=== PATIENT | male | born 1950 | race Caucasian/White ===

== ENCOUNTER 2017-03-16 14:59 | Inpatient (IN) | payer MEDICARE, OTHER ==
[~2017-03-16] VITALS: Ht 152.4 cm; Wt 85.3 kg
--- NOTE | ~2017-03-16 | O ---
[place], [place] OPERATIVE NOTE NAME: ALIYAH WOODS [facility] #: [id number] UNIT #: [id number] ROOM: [facility] DOCTOR: GURVINDER ERICKSON MD BIRTHDATE: [birth year] DOS: 03/17/2017 PREOPERATIVE DIAGNOSIS: Acute appendicitis. POSTOPERATIVE DIAGNOSIS: Acute perforated appendicitis. PROCEDURE: Laparoscopic appendectomy. SURGEON: Gurvinder Erickson MD TOUR BUS DRIVER: THELMA. ANESTHESIA: General with endotracheal intubation. INDICATIONS: This is a 67-year-old gentleman who comes in with abdominal pain and a CAT scan that showed acute appendicitis. It was decided to take the patient to the operating room for the above-mentioned procedure. The procedure and its complications explained to the patient in detail preoperatively. Complications that were discussed included but were not limited to bleeding, infection, prolonged postoperative pain, damage to underlying vital structures, inadvertent injury to underlying vital structures, incisional hernia formation and he agreed to proceed. DESCRIPTION OF PROCEDURE: After identifying the patient, the patient was brought to the operating suite and laid in the supine position. After induction of general anesthesia, timeout procedure was called. An NG-tube was inserted by the anesthesia team and a Mcnair catheter was inserted into the urinary bladder. The parts were then painted and draped in the usual sterile fashion. An incision below the umbilicus in a curvilinear fashion was made. The skin and the subcutaneous tissue were incised. The fascia was incised vertically and 2 stay sutures with 0 Vicryl were taken on either side. The peritoneum was opened and 12 mm Shane port was introduced into the peritoneal cavity and a pneumoperitoneum was created. Under direct vision, a left lower quadrant incision of 12 mm and suprapubic incision of 5 mm was made and appropriate size ports were introduced. There was found to be local inflammation from the acute appendicitis. Upon further dissection, it was found that there was a perforation of the appendix near the base. The appendix was held up with the help of an Endo Negra forceps and below the area of the perforation, the appendix was stapled off and removed from the peritoneal cavity after putting it in a bag. Copious amounts of saline was used for irrigation and after hemostasis was achieved and the area was clean and dry, a 15-Czech round Denis-Silva drain was placed via the suprapubic drain and placed in the region of the appendix. The drain was fixed after the port was removed to the overlying skin with the help of nylon sutures. The left lower quadrant port was also removed and the umbilical port was removed as well and the pneumoperitoneum was decompressed. The fascial defect was then approximated with the help of a single [id number]-ma-[id number] 0 Vicryl stitch and the edges of the skin were approximated after the were injected with 1% plain lidocaine with the help of 4-0 Vicryl in a subcuticular running fashion. Dressings were placed. The patient tolerated the procedure well and was extubated uneventfully and brought [place], [place] OPERATIVE NOTE NAME: ALIYAH WOODS UNIT #: [id number] ROOM: [facility] DOCTOR: GURVINDER ERICKSON MD BIRTHDATE: [birth year] back to the recovery room in stable fashion. A Mcnair catheter and the NG-tube was kept in place. There were no complications. Dr. Gurvinder Erickson, the attending surgeon, was present throughout the operating case. Gurvinder Erickson MD CM:OPRECORD:OPERATIVE NOTE [id number] GURVINDER ERICKSON MD 03/19/17 0800 interface
--- NOTE | ~2017-03-16 | DS ---
[place], [place] DISCHARGE SUMMARY NAME: ALIYAH WOODS [facility] #: [id number] UNIT #: [id number] ROOM: 515 DOCTOR: LYNETTE WINTER MD BIRTHDATE: [birth year] DOS: 03/20/2017 The patient has been admitted to the hospital with acute appendicitis, so he had appendectomy done yesterday and from which he has been recovering very satisfactorily. He also had some history of acute renal failure and tubular necrosis, hyperglycemia, elevated C-reactive protein, elevated blood protein, elevated lipase, tobacco abuse, hypokalemia, hypophosphatemia, hyperchloremia, hypermagnesemia and low serum vitamin D level. He has tolerated the procedure well and has recovered very well and according to his surgeon, the patient can be discharged today. He is able to eat well and without any problems. He had bowel movement, no nausea, no vomiting. His basic metabolic profile shows chloride 109 and calcium . Other values are normal. His CBC today showed white count 12,500, hemoglobin 11.8, hematocrit 35.6. PHYSICAL EXAMINATION: VITAL SIGNS: Stable. Blood pressure 133/65, pulse 65, respirations 18, temperature 97.9. CHEST: Clear. HEART: . ABDOMEN: Soft. No tenderness. DISCHARGE INSTRUCTIONS: The patient advised not to eat any fatty and fried food. He will be followed up by Dr. Hernandes in the office next week and also follow up with his surgeon. LYNETTE WINTER MD CM:AYO [id number] LYNETTE WINTER MD 03/22/17 1100 interface
[~2017-03-16 14:59] MED LIST: DAYPRO600 M1 PO; IBU800 MG PO; NEURONTIN600 MG PO; PRAVACHOL80 M1 GT; ROBAXIN750 MG PO; Synthroid,Levo25 MCG PO
[2017-03-16 15:10] VITALS: BP 138/84
[2017-03-16 15:40] LABS: BASO % 0.1 % (0.0-1.0); EOS % 0.1 % (1.0-4.0); HEMOGLOBIN 15.1 g/dl (14.0-18.0); LYMPH # 0.9 10*3/uL (1.3-4.4); LYMPH % 5.4 % (27.0-41.0); MEAN CELL VOLUME 92.8 fl (80.0-94.0); MEAN CORPUSCULAR HGB 31.1 pg (27.0-31.0); MEAN CORPUSCULAR HGB CONC 33.6 g/dl (33.0-37.0); MEAN PLATELET VOLUME 9.3 fl (9.6-12.3); MONO # 0.7 10*3/uL (0.1-1.0); MONO % 4.4 % (3.0-9.0); NEUT # 14.7 10*3/uL (2.3-7.9); NEUT % 89.7 % (47.0-73.0); PLATELET COUNT AUTOMATED 255 10*3/uL (130-400); RED BLOOD COUNT 4.85 10*6/uL (4.50-5.90); RED CELL DISTRI WIDTH 12.6 % (0-14.5); WHITE BLOOD COUNT 16.4 10*3/uL (4.8-10.8)
[2017-03-16 15:54] LABS: ALBUMIN 3.6 gm/dl (3.1-4.5); ALKALINE PHOSPHATASE 83 U/L (45-117); BUN 31 mg/dl (7-24); CHLORIDE 99 mmol/L (98-107); CREATININE 1.43 mg/dL (0.70-1.30); LIPASE 1482 U/L (73-393); POTASSIUM 4.1 mmol/L (3.5-5.1); SGOT/AST 31 IU/L (3-35); SGPT/ALT 51 U/L (12-78); SODIUM 134 mmol/L (136-145); TOTAL PROTEIN 8.7 gm/dL (6.4-8.2)
[2017-03-16 17:23] VITALS: BP 136/78
[2017-03-16 18:00] VITALS: BP 155/90
--- NOTE | 2017-03-16 18:00 | NUR ---
A 67, admitted to , under the services of AALIYAH Gautam MD with a diagnosis of . Chief complaint is abdominal pain. Patient arrived via stretcher from ER. Monitor applied. Initial assessment completed. Vital signs taken and recorded. AALIYAH GAUTAM MD notified; resident here to place orders. See assessment for past medical history, medications and allergies. Patient and/or family oriented to unit. [facility] visitation policy reviewed. Clothing/patient valuable form completed. MARTIN ARAGON
[2017-03-16 18:10] LABS: BILIRUBIN 1+ (NEGATIVE); BLOOD 2+ (NEGATIVE); CLARITY SL CLOUDY (CLEAR); COLOR YELLOW (YELLOW); GLUCOSE NEGATIVE (NEGATIVE); KETONE NEGATIVE (NEGATIVE); LEUKO ESTERASE NEGATIVE (NEGATIVE); NITRITE NEGATIVE (NEGATIVE); SPECIFIC GRAVITY >= 1.030 (1.005-1.030); UROBILINOGEN 0.2 E.U./dl (0.2-1.0)
[2017-03-16 20:00] VITALS: BP 148/78
[2017-03-17] VITALS (11 sets, daily range): BP systolic 122–186; BP diastolic 42–106
--- NOTE | 2017-03-17 05:59 | NUR ---
IV ZOFRAN ADMINISTERED AT THIS TIME PER PRN ORDER FOR 3 EPISODES OF VOMITING. WILL MONITOR EFFECTIVENESS OF MEDICATION. PATIENT SET UP FOR BATH. NEW BED LINENS, GOWN, AND TOWELS PROVIDED.
[2017-03-17 06:55] LABS: HEMOGLOBIN 13.1 g/dl (14.0-18.0); MEAN CORPUSCULAR HGB 31.7 pg (27.0-31.0); MEAN CORPUSCULAR HGB CONC 34.5 g/dl (33.0-37.0); MEAN PLATELET VOLUME 9.3 fl (9.6-12.3); PLATELET COUNT AUTOMATED 235 10*3/uL (130-400); RED BLOOD COUNT 4.13 10*6/uL (4.50-5.90); RED CELL DISTRI WIDTH 12.8 % (0-14.5); WHITE BLOOD COUNT 13.6 10*3/uL (4.8-10.8)
[2017-03-17 07:01] LABS: ACT PARTIAL THROMBO TIME 26.6 SECONDS (20.8-31.5)
[2017-03-17 07:12] LABS: ALBUMIN 2.9 gm/dl (3.1-4.5); ALKALINE PHOSPHATASE 71 U/L (45-117); BUN 27 mg/dl (7-24); CHLORIDE 109 mmol/L (98-107); CHOLESTEROL 167 mg/dL (<200); CREATININE 0.86 mg/dL (0.70-1.30); HDL CHOLESTEROL 17 mg/dl (40-60); LDL CHOLESTEROL 116 mg/dL (9-159); PHOSPHOROUS 1.6 mg/dL (2.5-4.9); POTASSIUM 3.3 mmol/L (3.5-5.1); SGOT/AST 21 IU/L (3-35); SGPT/ALT 35 U/L (12-78); SODIUM 139 mmol/L (136-145); TOTAL PROTEIN 7.2 gm/dL (6.4-8.2); TRIGLYCERIDES 168 mg/dl (<150); VLDL CHOLESTEROL 34 mg/dL (6-40)
[2017-03-17 07:14] LABS: TOTAL CELLS COUNTED 100 #CELLS
[2017-03-17 07:15] LABS: PLATELET SUFFICIENCY NORMAL (NORMAL)
[2017-03-17 08:13] LABS: VITAMIN D, 25-HYDROXY 24.4 ng/mL (30-100)
--- NOTE | 2017-03-17 08:27 | NUR ---
COMMODITY SPECIALIST VS. PT OFF FLOOR IN OR.
[2017-03-17 13:52] LABS: ALBUMIN 2.5 gm/dl (3.1-4.5); BUN 26 mg/dl (7-24); CHLORIDE 111 mmol/L (98-107); CREATININE 0.76 mg/dL (0.70-1.30); PHOSPHOROUS 1.9 mg/dL (2.5-4.9); POTASSIUM 3.9 mmol/L (3.5-5.1); SODIUM 142 mmol/L (136-145)
--- NOTE | 2017-03-17 20:59 | NUR ---
PT. REQUESTED PAIN MEDICATION FOR ABD. PAIN 10/17. ADM. DILAUDID AT THIS TIME. WILL CONTINUE TO MONITOR FOR EFFECTIVENESS.
[2017-03-18] VITALS: BP 107/55
[2017-03-18 06:35] LABS: BASO % 0.2 % (0.0-1.0); EOS % 0.1 % (1.0-4.0); HEMATOCRIT 38.2 % (42.0-52.0); HEMOGLOBIN 12.7 g/dl (14.0-18.0); LYMPH # 0.7 10*3/uL (1.3-4.4); LYMPH % 6.9 % (27.0-41.0); MEAN CELL VOLUME 93.9 fl (80.0-94.0); MEAN CORPUSCULAR HGB 31.2 pg (27.0-31.0); MEAN CORPUSCULAR HGB CONC 33.2 g/dl (33.0-37.0); MEAN PLATELET VOLUME 9.6 fl (9.6-12.3); MONO # 0.7 10*3/uL (0.1-1.0); MONO % 6.9 % (3.0-9.0); NEUT % 85.6 % (47.0-73.0); PLATELET COUNT AUTOMATED 241 10*3/uL (130-400); RED BLOOD COUNT 4.07 10*6/uL (4.50-5.90); WHITE BLOOD COUNT 10.5 10*3/uL (4.8-10.8)
[2017-03-18 06:44] LABS: ALBUMIN 2.3 gm/dl (3.1-4.5); ALKALINE PHOSPHATASE 65 U/L (45-117); BUN 22 mg/dl (7-24); CHLORIDE 110 mmol/L (98-107); CREATININE 0.69 mg/dL (0.70-1.30); POTASSIUM 3.7 mmol/L (3.5-5.1); SGOT/AST 24 IU/L (3-35); SGPT/ALT 32 U/L (12-78); SODIUM 144 mmol/L (136-145); TOTAL PROTEIN 6.3 gm/dL (6.4-8.2)
[2017-03-18 08:00] VITALS: BP 143/64
--- NOTE | 2017-03-18 08:30 | NUR ---
Energy Efficiency Engineer in to talk to patient. Patient states lives at HOME with HIS SON. There are 12 steps in the home. Physician: DR HOLLINS [facility]acy: [facility] Home health services: NONE Patient's level of ADLs: INDEPENDENT Patient has working utilities: YES DME: NONE Follow-up physician's appointment after d/c: WILL MAKE HIS OWN APPT Does patient want to access PORTAL?: Discharge plan HOME. SHREYA TAN
[2017-03-18 12:00] VITALS: BP 142/74
--- NOTE | 2017-03-18 12:00 | NUR ---
DR FLORES IN TO SEE PT. UPDATED HIM ON PT'S CONDITION AND BOWEL MOVEMENT. ORDERS RECEIVED. FOWLER CATHETER AND NGT D/C'D INTACT. PT INSTRUCTED HE COULD HAVE CLEAR LIQUIDS BUT NOT TO "OVERDO IT" BECAUSE IF HE OULD START TO VOMIT AGAIN THAN THE NGT WILL HAVE TO BE REINSERTED. PT VERBALIZED UNDERSTANDING.
--- NOTE | 2017-03-18 14:21 | NUR ---
PT RESTING. PT DENIES ABD. PAIN OR NAUSEA.
--- NOTE | 2017-03-18 15:10 | NUR ---
Occupational Therapy evaluation completed this date on 5 with full eval to follow. Precautions include abdominal/post surgical precautions, IV UE, low complexity level 63275. Recommend return home at [facility] with no further OT indicated at this time. Thank you for this referral. Evita Eden OTR/l
--- NOTE | 2017-03-18 15:24 | NUR ---
PHYSICAL THERAPY PAtient evaluated on 4, full evaluation to follow. Continue with PT as per plan of care with fall, recent abdominal surgery 03/17/17 and multiple IV precautions. Home with home health nursing prn. PAtient is moderate complexity via chart review, tests and evalaution: [id number]. Thank you for this referral. Viviane Reed,PT
[2017-03-18 16:00] VITALS: BP 135/74
--- NOTE | 2017-03-18 16:30 | NUR ---
Pt had a dark green liquid bm with some solid bits in it.
--- NOTE | 2017-03-18 18:59 | NUR ---
PT HAD A BOWEL MOVEMENT. SMALL AMOUNT, DARK GREEN LIQUID WITH SOLID BITS.
--- NOTE | 2017-03-18 19:00 | NUR ---
PT REQUESTED PAIN MEDICATION FOR POST-OP PAIN. PAIN RATED AT 7 OUT OF 10 AND CONSTANT THROBBING PAIN. DILAUDID GIVEN PER PRN PROTOCOL.
[2017-03-18 20:00] VITALS: BP 152/89
[2017-03-19] VITALS: BP 156/84
[2017-03-19 06:54] LABS: BASO % 0.3 % (0.0-1.0); EOS # 0.1 10*3/uL (0.0-0.4); EOS % 0.7 % (1.0-4.0); HEMATOCRIT 35.7 % (42.0-52.0); HEMOGLOBIN 11.8 g/dl (14.0-18.0); LYMPH # 1.2 10*3/uL (1.3-4.4); LYMPH % 13.1 % (27.0-41.0); MEAN CELL VOLUME 93.2 fl (80.0-94.0); MEAN CORPUSCULAR HGB 30.8 pg (27.0-31.0); MEAN CORPUSCULAR HGB CONC 33.1 g/dl (33.0-37.0); MEAN PLATELET VOLUME 9.4 fl (9.6-12.3); MONO # 0.7 10*3/uL (0.1-1.0); MONO % 7.8 % (3.0-9.0); NEUT # 7.1 10*3/uL (2.3-7.9); NEUT % 77.8 % (47.0-73.0); PLATELET COUNT AUTOMATED 258 10*3/uL (130-400); RED BLOOD COUNT 3.83 10*6/uL (4.50-5.90); RED CELL DISTRI WIDTH 13.3 % (0-14.5); WHITE BLOOD COUNT 9.1 10*3/uL (4.8-10.8)
[2017-03-19 07:18] LABS: BUN 21 mg/dl (7-24); CHLORIDE 110 mmol/L (98-107); CREATININE 0.73 mg/dL (0.70-1.30); PHOSPHOROUS 1.4 mg/dL (2.5-4.9); POTASSIUM 3.6 mmol/L (3.5-5.1); SODIUM 143 mmol/L (136-145)
[2017-03-19 08:00] VITALS: BP 136/71
[2017-03-19 12:00] VITALS: BP 124/67
--- NOTE | 2017-03-19 13:16 | NUR ---
PHYSICAL THERAPY Zeyad seen this AM for his therapy session. Pt said that he is fine and did not need to be see, will check back this PM. KAIA MERINO RN ORTHO.
--- NOTE | 2017-03-19 13:18 | NUR ---
PHYSICAL THERAPY Back this PM to see if Zeyad would gait for his therapy session. Pt said not that he did not need any therapy that he walks to the bathroom by himself. KAIA MERINO ADVISOR TO COMMAND IN COMBAT.
[2017-03-19 16:42] VITALS: BP 132/60
[2017-03-19 20:00] VITALS: BP 134/81
[2017-03-20] VITALS: BP 151/90
[2017-03-20 06:29] LABS: BASO % 0.3 % (0.0-1.0); EOS # 0.1 10*3/uL (0.0-0.4); EOS % 1.1 % (1.0-4.0); HEMATOCRIT 35.6 % (42.0-52.0); HEMOGLOBIN 11.8 g/dl (14.0-18.0); LYMPH # 1.4 10*3/uL (1.3-4.4); LYMPH % 11.1 % (27.0-41.0); MEAN CELL VOLUME 92.5 fl (80.0-94.0); MEAN CORPUSCULAR HGB 30.6 pg (27.0-31.0); MEAN CORPUSCULAR HGB CONC 33.1 g/dl (33.0-37.0); MEAN PLATELET VOLUME 9.2 fl (9.6-12.3); MONO # 0.9 10*3/uL (0.1-1.0); MONO % 7.3 % (3.0-9.0); NEUT # 9.9 10*3/uL (2.3-7.9); NEUT % 79.4 % (47.0-73.0); PLATELET COUNT AUTOMATED 270 10*3/uL (130-400); RED BLOOD COUNT 3.85 10*6/uL (4.50-5.90); RED CELL DISTRI WIDTH 13.3 % (0-14.5); WHITE BLOOD COUNT 12.5 10*3/uL (4.8-10.8)
[2017-03-20 07:10] LABS: BUN 16 mg/dl (7-24); CHLORIDE 109 mmol/L (98-107); CREATININE 0.61 mg/dL (0.70-1.30); PHOSPHOROUS 2.3 mg/dL (2.5-4.9); POTASSIUM 3.7 mmol/L (3.5-5.1); SODIUM 141 mmol/L (136-145)
[2017-03-20 08:00] VITALS: BP 133/65
[2017-03-20 12:00] VITALS: BP 144/81
--- NOTE | 2017-03-20 13:16 | NUR ---
Discharge instructions reviewed with patient/family. Patient receptive and verbalizes understanding. Follow-up care arranged. Written instructions given to patient/family. KATHI GALINDO
--- NOTE | 2017-03-22 07:17 | NUR ---
PHYSICAL THERAPY CO-SIGN I approve of the Phyical Therapy notes written above. BASILIO BONILLA PT
== END 2017-03-20 13:16 | disposition home or self-care (01) | DRG 853 ==
LOC: ED 14:59 → 5E 17:21
PROVIDERS: Internal Medicine; Nurse Practitioner Family; Surgery; ADMIT Internal Medicine
PROC: 0D9670Z Drainage of Stomach with Drainage Device, Via Natural or Artificial Opening (ICD-10-PCS; principal; 2017-03-17)
PROC: 0DTJ4ZZ Resection of Appendix, Percutaneous Endoscopic Approach (ICD-10-PCS; principal; 2017-03-17)
DX: A41.9 Sepsis, unspecified organism (principal); N17.0 Acute kidney failure with tubular necrosis; K56.609 Unspecified intestinal obstruction, unspecified as to partial versus complete obstruction; E46 Unspecified protein-calorie malnutrition; K35.3 Acute appendicitis with localized peritonitis; K56.7 Ileus, unspecified; E83.39 Other disorders of phosphorus metabolism; E83.41 Hypermagnesemia; E87.1 Hypo-osmolality and hyponatremia; E87.8 Other disorders of electrolyte and fluid balance, not elsewhere classified; R73.9 Hyperglycemia, unspecified; F17.200 Nicotine dependence, unspecified, uncomplicated; E87.6 Hypokalemia; E78.1 Pure hyperglyceridemia; Z71.6 Tobacco abuse counseling; Z79.899 Other long term (current) drug therapy; Z68.26 Body mass index [BMI] 26.0-26.9, adult; Z80.9 Family history of malignant neoplasm, unspecified

== ENCOUNTER → 2017-04-29 | Outpatient (CLI) | payer MEDICARE, OTHER | END | disposition home or self-care (01) | LOC: US 13:30 | DX: I70.213 Atherosclerosis of native arteries of extremities with intermittent claudication, bilateral legs (principal) ==

== ENCOUNTER → 2017-05-20 | Outpatient (CLI) | payer MEDICARE, OTHER ==
[2017-05-20 10:29] LABS: CREATININE 0.95 mg/dL (0.70-1.30)
== END | disposition home or self-care (01) ==
LOC: CT 10:00 → LAB 10:03 → CT 10:03
PROVIDERS: Radiology Diagnostic Radiology
DX: I70.8 Atherosclerosis of other arteries (principal); I70.0 Atherosclerosis of aorta; I73.9 Peripheral vascular disease, unspecified; M79.606 Pain in leg, unspecified

== ENCOUNTER 2018-03-16 22:30 | Emergency (ER) | payer MEDICARE, OTHER ==
[~2018-03-16] VITALS: Ht 167.6 cm; Wt 70.3 kg
[2018-03-16] MEDS ORDERED: PLAVIX75 M1 PO (22:36)
[2018-03-16] MEDS ORDERED: ASPIRIN CHEWABL81 MG PO (22:37)
[2018-03-16] MEDS ORDERED: MULTIVITAMINS1 EAC5 PO (22:37)
== END 2018-03-17 00:19 | disposition home or self-care (01) ==
LOC: ED 22:30
DX: S05.12XA Contusion of eyeball and orbital tissues, left eye, initial encounter (principal); S09.90XA Unspecified injury of head, initial encounter; F17.200 Nicotine dependence, unspecified, uncomplicated; Z79.82 Long term (current) use of aspirin; W50.0XXA Accidental hit or strike by another person, initial encounter; Y93.89 Activity, other specified; Y92.89 Other specified places as the place of occurrence of the external cause; Y99.8 Other external cause status

== ENCOUNTER → 2023-02-26 | Outpatient (CLI) | payer MEDICARE, OTHER ==
[~2023-02-26] MED LIST changes: +ASPIRIN CHEWABL81 MG PO; +MULTIVITAMINS1 EAC5 PO; +PLAVIX75 M1 PO
== END | disposition home or self-care (01) ==
LOC: CT 15:54
PROVIDERS: ATTEND Internal Medicine
DX: Z12.2 Encounter for screening for malignant neoplasm of respiratory organs (principal); J43.9 Emphysema, unspecified; R91.1 Solitary pulmonary nodule; J98.4 Other disorders of lung; Z87.891 Personal history of nicotine dependence

== ENCOUNTER → 2024-05-01 | Outpatient (CLI) | payer MEDICARE, OTHER | END | disposition home or self-care (01) | LOC: CT 02:01 | PROVIDERS: ATTEND Internal Medicine | DX: Z00.00 Encounter for general adult medical examination without abnormal findings (principal); R91.8 Other nonspecific abnormal finding of lung field; I25.10 Atherosclerotic heart disease of native coronary artery without angina pectoris; J43.2 Centrilobular emphysema; K80.20 Calculus of gallbladder without cholecystitis without obstruction; Z87.891 Personal history of nicotine dependence ==

== ENCOUNTER → 2025-04-09 | Outpatient (CLI) | payer MEDICARE, OTHER | END | disposition home or self-care (01) | LOC: US 10:30 | PROVIDERS: ATTEND Internal Medicine | DX: K42.9 Umbilical hernia without obstruction or gangrene (principal) ==

== ENCOUNTER 2025-05-01 09:45 | Emergency (ER) | payer MEDICARE, OTHER ==
[2025-05-01] MEDS ORDERED: Acetaminophen/Oxycodone 5 MG/325 MG TABLET PO ONE (10:20)
[2025-05-01] MEDS ORDERED: Ondansetron Hydrochloride 4 MG TAB PO ONE (10:20)
[2025-05-01] MEDS ORDERED: PREDNISONE20 M1 PO (12:08)
[2025-05-01] MEDS ORDERED: METHOCARBAMOL750 M1 PO (12:08)
== END 2025-05-01 12:11 | disposition home or self-care (01) ==
LOC: ED 09:45
DX: S22.32XA Fracture of one rib, left side, initial encounter for closed fracture (principal); K80.20 Calculus of gallbladder without cholecystitis without obstruction; R91.1 Solitary pulmonary nodule; F17.200 Nicotine dependence, unspecified, uncomplicated; Z79.899 Other long term (current) drug therapy; Z79.82 Long term (current) use of aspirin; Z98.890 Other specified postprocedural states; W00.0XXA Fall on same level due to ice and snow, initial encounter; Y93.89 Activity, other specified; Y92.89 Other specified places as the place of occurrence of the external cause; Y99.8 Other external cause status